=== PATIENT | male | born 1985 ===

== ENCOUNTER 2020-03-25 11:04 | Emergency (ER) | payer BC ==
[~2020-03-25] VITALS: Ht 182.9 cm; Wt 74.8 kg
== END 2020-03-25 16:20 | disposition home or self-care (01) ==
LOC: ER 11:04
DX: B34.9 Viral infection, unspecified (principal); A90 Dengue fever [classical dengue]; Z03.818 Encounter for observation for suspected exposure to other biological agents ruled out; R06.02 Shortness of breath